=== PATIENT | male | born 1955 | race Caucasian/White ===

== ENCOUNTER 2020-09-12 12:04 | Emergency (ER) | payer MEDICARE ==
[~2020-09-12 12:04] MED LIST: BUTALB-ACETAMI1 EAC1 PO; COLACE100 MG PO; GABAPENTIN400 MG PO; MIRALAX17 GM PO; NASONEX SPRAY 117 GM; PERCOCET 5-3251 EACH PO
[2020-09-12 13:00] LABS: HEMOGLOBIN 15.5 gm/dl (14.0-17.5); RED BLOOD COUNT 4.73 M/UL (4.20-5.50); WHITE BLOOD COUNT 3.1 K/UL (4.5-11.0)
[2020-09-12 13:19] LABS: BUN/CREATININE RATIO 20 (0-10)
[2020-09-12] MEDS ORDERED: ZINC50 M2 PO (15:49)
[2020-09-12] MEDS ORDERED: IBUPROFEN600 MG PO (15:49)
[2020-09-12] MEDS ORDERED: VITAMIN D3125 MC1 PO (15:49)
[2020-09-12] MEDS ORDERED: VITAMIN C1000 MG PO (15:49)
[2020-12-24] MEDS ORDERED: ASPIRIN EC81 MG PO (07:16)
[2020-12-24] MEDS ORDERED: VOLTAREN ARTHRI20 GM TOP (07:18)
[2020-12-24] MEDS ORDERED: LISINOPRIL10 MG PO (07:20)
== END 2020-09-12 16:01 | disposition home or self-care (01) ==
LOC: ER1 12:04
PROVIDERS: Internal Medicine
DX: U07.1 COVID-19 (principal); I10 Essential (primary) hypertension; Z90.89 Acquired absence of other organs; Z88.6 Allergy status to analgesic agent; Z88.8 Allergy status to other drugs, medicaments and biological substances
CPT/HCPCS: 71045; 80053; 82728; 85025; 85379; 93005; 99285; M0239

== ENCOUNTER → 2020-10-09 | Outpatient (CLI) | payer MEDICARE ==
[~2020-10-09] MED LIST changes: +ASPIRIN EC81 MG PO; +ELIQUIS 5 MG TAB5 MG PO; +FLECAINIDE ACE100 MG PO; +IBUPROFEN600 MG PO; +LISINOPRIL10 MG PO; +NURTEC ODT75 MG PO; +OMEPRAZOLE40 MG PO; +TOPROL XL25 MG PO; +VITAMIN C1000 MG PO; +VITAMIN D3125 MC1 PO; +VOLTAREN ARTHRI20 GM TOP; +ZINC50 M2 PO
== END ==
LOC: KOH-I 08:58
DX: U07.1 COVID-19 (principal); J12.82 Pneumonia due to coronavirus disease 2019
CPT/HCPCS: 71046

== ENCOUNTER → 2020-10-31 | Outpatient (CLI) | payer MEDICARE | LOC: KOH-I 08:00 | DX: D72.819 Decreased white blood cell count, unspecified (principal) | CPT/HCPCS: 76705 ==

== ENCOUNTER → 2020-11-16 | Outpatient (CLI) | payer MEDICARE | LOC: KOH-I 08:31 | DX: D34 Benign neoplasm of thyroid gland (principal); Z90.89 Acquired absence of other organs | CPT/HCPCS: 76536 ==

== ENCOUNTER 2020-12-24 12:03 | Observation (INO) | payer MEDICARE ==
[~2020-12-24] VITALS: Ht 180.3 cm; Wt 86.2 kg
[~2020-12-24 12:03] MED LIST changes: -ELIQUIS 5 MG TAB5 MG PO; -FLECAINIDE ACE100 MG PO; -NURTEC ODT75 MG PO; -OMEPRAZOLE40 MG PO; -TOPROL XL25 MG PO
[2020-12-24 13:04] LABS: HEMOGLOBIN 18.1 gm/dl (14.0-17.5); RED BLOOD COUNT 5.38 M/UL (4.20-5.50); WHITE BLOOD COUNT 3.2 K/UL (4.5-11.0)
[2020-12-24 13:31] LABS: BUN/CREATININE RATIO 17 (0-10)
[2020-12-24] MEDS ORDERED: OMEPRAZOLE40 MG PO (15:48)
[2020-12-24] MEDS ORDERED: NURTEC ODT75 MG PO (16:06)
[2020-12-25 01:18] LABS: WHITE BLOOD COUNT 3.8 K/UL (4.5-11.0)
[2020-12-25 01:37] LABS: HEMOGLOBIN 16.1 gm/dl (14.0-17.5); RED BLOOD COUNT 4.75 M/UL (4.20-5.50)
[2020-12-25 02:11] LABS: BUN/CREATININE RATIO 17 (0-10)
[2020-12-26] MEDS ORDERED: ELIQUIS 5 MG TAB5 MG PO (14:52)
[2020-12-26] MEDS ORDERED: TOPROL XL25 MG PO (14:52)
[2020-12-26] MEDS ORDERED: FLECAINIDE ACE100 MG PO (14:52)
== END 2020-12-26 16:08 | disposition home or self-care (01) ==
LOC: ER1 12:03 → CDU 14:29 → MED SURG 4 23:51 → CDU 23:51 → MED SURG 4 23:51
PROVIDERS: Physician Assistant; ADMIT Internal Medicine
DX: I48.0 Paroxysmal atrial fibrillation (principal); I10 Essential (primary) hypertension; N17.9 Acute kidney failure, unspecified; R91.8 Other nonspecific abnormal finding of lung field; K21.9 Gastro-esophageal reflux disease without esophagitis; E89.0 Postprocedural hypothyroidism; M19.90 Unspecified osteoarthritis, unspecified site; G43.909 Migraine, unspecified, not intractable, without status migrainosus; Z20.822 Contact with and (suspected) exposure to COVID-19; Z79.82 Long term (current) use of aspirin; Z79.899 Other long term (current) drug therapy; Z86.16 Personal history of COVID-19; Z86.011 Personal history of benign neoplasm of the brain; Z87.19 Personal history of other diseases of the digestive system; Z88.8 Allergy status to other drugs, medicaments and biological substances
CPT/HCPCS: ECHO; 71045; 78452; 80048; 80053; 82550; 82553; 83735; 83874; 84439; 84443; 84484; 85025; 93005; 93017; 93306; 96372; 99285; A9502; G0378; J1650; J2785; J7030; U0002

== ENCOUNTER → 2021-01-23 | Outpatient (CLI) | payer MEDICARE ==
[~2021-01-23] MED LIST changes: +ELIQUIS 5 MG TAB5 MG PO; +FLECAINIDE ACE100 MG PO; +NURTEC ODT75 MG PO; +OMEPRAZOLE40 MG PO; +TOPROL XL25 MG PO
== END ==
LOC: KOH-I 09:41
DX: R91.1 Solitary pulmonary nodule (principal)
CPT/HCPCS: 71250

== ENCOUNTER → 2021-02-04 | Outpatient (CLI) | payer MEDICARE | LOC: RAD 07:49 | DX: R09.89 Other specified symptoms and signs involving the circulatory and respiratory systems (principal); R13.10 Dysphagia, unspecified | CPT/HCPCS: 74230; 92611-GN ==

== ENCOUNTER → 2021-05-14 | Outpatient (CLI) | payer MEDICARE | LOC: HEART 5 11:09 | DX: M79.641 Pain in right hand (principal); M79.642 Pain in left hand; M79.672 Pain in left foot; M77.52 Other enthesopathy of left foot and ankle; Z96.698 Presence of other orthopedic joint implants; M89.372 Hypertrophy of bone, left ankle and foot | CPT/HCPCS: 73130; 73630 ==

== ENCOUNTER → 2021-06-06 | Outpatient (CLI) | payer MEDICARE | LOC: EMI 09:05 | DX: D32.9 Benign neoplasm of meninges, unspecified (principal); M54.16 Radiculopathy, lumbar region; R90.89 Other abnormal findings on diagnostic imaging of central nervous system; M79.89 Other specified soft tissue disorders; R93.7 Abnormal findings on diagnostic imaging of other parts of musculoskeletal system; Z98.1 Arthrodesis status | CPT/HCPCS: 70551; 72148 ==

== ENCOUNTER → 2021-10-04 | Day surgery (SDC) | payer MEDICARE ==
[~2021-10-04] MED LIST changes: +CRESTOR 10 MG T10 MG PO; +LISINOPRIL5 MG PO
== END | disposition home or self-care (01) ==
LOC: OR 11:38
PROVIDERS: Podiatrist Foot & Ankle Surgery
PROC: 0QBM0ZZ Excision of Left Tarsal, Open Approach (ICD-10-PCS; 2021-10-04)
PROC: 0QBM0ZZ Excision of Left Tarsal, Open Approach (ICD-10-PCS; principal; 2021-10-04 12:00)
DX: L94.2 Calcinosis cutis (principal); Z20.822 Contact with and (suspected) exposure to COVID-19; I10 Essential (primary) hypertension; I48.91 Unspecified atrial fibrillation; E78.5 Hyperlipidemia, unspecified; M19.90 Unspecified osteoarthritis, unspecified site; G43.909 Migraine, unspecified, not intractable, without status migrainosus; K44.9 Diaphragmatic hernia without obstruction or gangrene; Z86.16 Personal history of COVID-19; Z91.041 Radiographic dye allergy status; Z79.01 Long term (current) use of anticoagulants; Z79.899 Other long term (current) drug therapy; Z88.8 Allergy status to other drugs, medicaments and biological substances; Z95.5 Presence of coronary angioplasty implant and graft; Z91.09 Other allergy status, other than to drugs and biological substances
CPT/HCPCS: J0690; J2704; J2795; J3010; J7030; J7120

== ENCOUNTER → 2021-12-30 | Outpatient (CLI) | payer MEDICARE | LOC: HEART 5 11:25 | DX: R07.9 Chest pain, unspecified (principal) ==

== ENCOUNTER → 2022-02-20 | Outpatient (CLI) | payer MEDICARE | LOC: HEART 5 14:28 | DX: I48.0 Paroxysmal atrial fibrillation (principal); R07.9 Chest pain, unspecified; I08.1 Rheumatic disorders of both mitral and tricuspid valves | CPT/HCPCS: 93306 ==